=== PATIENT | male | born 1980 | race American Indian/Alaskan Native ===

== ENCOUNTER 2019-09-30 04:12 | Emergency (ER) | payer OTHER ==
--- NOTE | 2019-09-30 05:17 | XRay Report ---
CHEST 2 VIEWS, 09/30/2019 5:04 AM INDICATION: Cough. Fever. COMPARISON: None FINDINGS: Support devices: None Heart: The heart is normal in size. Lungs/pleura: The lungs are clear of focal airspace disease or significant pleural effusion Additional findings: None IMPRESSION: 1. No evidence of acute cardiopulmonary process. Signer Name: Olivia Aranda MD Signed: 09/30/2019 5:12 AM Workstation Name: [id number]
[2019-09-30] MEDS ORDERED: IBUPROFEN 800 MG TAB ONE (06:07)
[2019-09-30] MEDS ORDERED: IBUPROFEN 800 MG TAB PO ONE (06:20)
[2019-09-30] MEDS ORDERED: SODIUM CHLORIDE 0.9% 1000 ML 1,000 ML IV ONE (06:33)
[2019-09-30] MEDS ORDERED: ONDANSETRON 4 MG/2 ML INJ IV ONE (06:33)
[2019-09-30 07:28] LABS: Mean Corpuscular HGB Conc 34 % (32-34); Mean Corpuscular Volume 79 fl (84-94); Platelet Count 181 K/mm3 (140-440); Red Blood Count 4.79 M/mm3 (3.65-5.03); Red Cell Distribution Width 13.6 % (13.2-15.2)
--- NOTE | 2019-09-30 07:35 | Emergency Department Report ---
Minor Respiratory - HPI Chief Complaint: Upper Respiratory Infection Stated Complaint: FLU LIKE SYMPTOMS Time Seen by Provider: 09/30/19 07:12 Duration: 1 week Pain Location: Nose Severity: moderate Minor Respiratory: Yes Rhinorrhea, Yes Able to Tolerate Fluids, Yes Cough, Yes Sick Contacts, Yes Fever, No Sore Throat, No Ear Pain, No Hemoptysis, No Chest Pain, No Shortness of Breath Other History: This is a 39-year-old -[place] male who presents to the emergency room with upper respiratory symptoms for one week. Patient reports cough, chills, fever, myalgia, and vomiting. Patient states he works outside and last week it was raining and S1 symptoms started. He reports worsening symptoms over the past 2 days. He is taken DayQuil, NyQuil, and TheraFlu with minimal improvement of symptoms. He denies sore throat, diarrhea, chest pain, and weakness. ED Review of Systems ROS: Stated complaint: FLU LIKE SYMPTOMS Other details as noted in HPI Constitutional: chills, fever ENT: congestion. denies: ear pain, throat pain, epistaxis Respiratory: cough. denies: shortness of breath, wheezing Cardiovascular: denies: chest pain, palpitations Gastrointestinal: nausea, vomiting. denies: abdominal pain, diarrhea Musculoskeletal: myalgia. denies: back pain, joint swelling, arthralgia Skin: denies: rash, lesions Neurological: denies: headache, weakness, paresthesias Psychiatric: denies: anxiety, depression ED Past Medical Hx - Past Medical History Previous Medical History?: No - Surgical History Past Surgical History?: No - Social History Smoking Status: Light Tobacco Smoker - Medications Home Medications: Home Medications Medication Instructions Recorded Confirmed Last Taken Type Benzonatate [Tessalon Perles] 100 mg PO Q8HR PRN #30 capsule 09/30/19 Unknown R x Cetirizine HCl [Zyrtec 10mg tab] 10 mg PO DAILY #30 tablet 09/30/19 Unknown Rx Fluticasone [Flonase] 1 spray NS QDAY #1 bottle 09/30/19 Unknown Rx Ondansetron [Zofran Odt] 4 mg PO Q8HR PRN #15 tab.rapdis 09/30/19 Unknown Rx Minor Respiratory Exam - Exam General: Vital signs noted. No distress. Alert and acting appropriately. HEENT: Yes Pharyngeal Erythema (erythematous posterior pharynx, uvula midline), Yes Moist Mucous Membranes, Yes Rhinorrhea (turbinates congested with mucoid discharge), No Pharyngeal Exudates, No Conjuctival Injection, No Frontal Tenderness, No Maxillary Tenderness Ear: Neither TM Bulge, Neither TM Erythema, Neither EAC Pain, Neither EAC D ischarge Neck: Yes Supple, No Adenopathy Lungs: Yes Good Air Exchange, No Wheezes, No Ronchi, No Stridor, No Cough, No Labored Respirations, No Retractions, No Use of Accessory Muscles, No Other Abnormal Lung Sounds Heart: Yes Regular, No Murmur Abdomen: Yes Normal Bowel Sounds, No Tenderness, No Peritoneal Signs Skin: No Rash, No Edema Neurologic: Alert and oriented, no deficits. Musculoskeletal: Unremarkable. ED Course Vital Signs 09/30/19 09/30/19 09/30/19 04:17 04:43 06:22 Temperature 99.8 F H 99.8 F H Pulse Rate 117 H 120 H Respiratory 18 18 20 Rate Blood Pressure 139/75 139/75 O2 Sat by Pulse 94 95 Oximetry Vital Signs 09/30/19 09/30/19 09/30/19 04:17 04:43 06:22 Temperature 99.8 F H 99.8 F H Pulse Rate 117 H 120 H Respiratory 18 18 20 Rate Blood Pressure 139/75 139/75 Blood Pressure [Left] O2 Sat by Pulse 94 95 Oximetry 09/30/19 08:13 Temperature Pulse Rate 94 H Respiratory 18 Rate Blood Pressure Blood Pressure 131/75 [Left] O2 Sat by Pulse 98 Oximetry ED Medical Decision Making - Lab Data Result diagrams: 09/30/19 06:55 09/30/19 06:55 Lab Results 09/30/19 Range/Units 04:40 Influenza A (Rapid) Negative (Negative) Influenza B (Rapid) Negative (Negative) Lab Results 09/30/19 09/30/19 09/30/19 Range/Units 04:40 06:55 06:55 WBC 5.4 (4.5-11.0) K/mm3 RBC 4.79 (3.65-5.03) M/mm3 Hgb 13.0 (11.8-15.2) gm/dl Hct 38.0 (35.5-45.6) % MCV 79 L (84-94) fl MCH 27 L (28-32) pg MCHC 34 (32-34) % RDW 13.6 (13.2-15.2) % Plt Count 181 (140-440) K/mm3 Sodium 135 L (137-145) mmol/L Potassium 3.7 (3.6-5.0) mmol/L Chloride 101.0 (98-107) mmol/L Carbon Dioxide 18 L (22-30) mmol/L Anion Gap 20 mmol/L BUN 8 L (9-20) mg/dL Creatinine 1.1 (0.8-1.5) mg/dL Estimated GFR > 60 ml/min BUN/Creatinine Ratio 7 % Glucose 129 H (75-100) mg/dL Calcium 8.8 (8.4-10.2) mg/dL Total Bilirubin 0.70 (0.1-1.2) mg/dL AST 29 (5-40) units/L ALT 30 (7-56) units/L Alkaline Phosphatase 79 (35-129) units/L Total Protein 7.9 (6.3-8.2) g/dL Albumin 4.3 (3.9-5) g/dL Albumin/Globulin Ratio 1.2 % Lipase 25 (13-60) units/L Influenza A (Rapid) Negative (Negative) Influenza B (Rapid) Negative (Negative) - Radiology Data Radiology results: report reviewed CHEST 2 VIEWS, 09/30/2019 5:04 AM INDICATION: Cough. Fever. COMPARISON: None FINDINGS: Support devices: None Heart: The heart is normal in size. Lungs/pleura: The lungs are clear of focal airspace disease or significant pleural effusion Additional findings: None IMPRESSION: 1. No evidence of acute cardiopulmonary process. - Medical Decision Making Tachycardic on arrival. no acute distress. Chest x-ray and labs obtained. Chest x-ray no acute cardiopulmonary findings. Negative influenza. Given Zofran, analgesics, and 1 L normal saline bolus while in the ER. Patient re ports feeling better. Vitals improved. Reviewed results and plan with patient. Nasopharyngitis. Start Zofran, benzonatate, cetirizine, and Flonase. Discharged home stable. Encouraged to do supportive care for URI. Follow up with Primary Care Provider in 2-3 days. Critical care attestation.: If time is entered above; I have spent that time in minutes in the direct care of this critically ill patient, excluding procedure time. ED Disposition Clinical Impression: Acute nasopharyngitis, Cough in adult, Nausea and vomiting in adult patient Disposition: DC-01 TO HOME OR SELFCARE Is pt being admited?: No Condition: Stable Instructions: Upper Respiratory Infection (ED), Cold Symptoms (ED) Additional Instructions: Increase fluid intake and rest. Wash hands frequently. Continue taking Tylenol or ibuprofen to control fever. F/U with Primary Care Provider. Return to ER if fever, shortness of breath, or difficulty breathing after 48 hours of supportive care. Prescriptions: Fluticasone [Flonase] 1 spray NS QDAY #1 bottle Benzonatate [Tessalon Perles] 100 mg PO Q8HR PRN #30 capsule PRN Reason: Cough Ondansetron [Zofran Odt] 4 mg PO Q8HR PRN #15 tab.rapdis PRN Reason: Nausea And Vomiting Cetirizine HCl [Zyrtec 10mg tab] 10 mg PO DAILY #30 tablet Referrals: [facility] [place] [Outside] - 3-5 Days [facility] [Outside] - 3-5 Days [facility] [Outside] - 3-5 Days Forms: Work/School Release Form(ED) Time of Disposition: 07:36
[2019-09-30 07:53] LABS: Alanine Aminotransferase 30 units/L (7-56); Albumin 4.3 g/dL (3.9-5); BUN/Creatinine Ratio 7; Blood Urea Nitrogen 8 mg/dL (9-20); Calcium 8.8 mg/dL (8.4-10.2); Hemolysis Index 6
[2019-09-30 08:16] VITALS: BP 131/75
== END 2019-09-30 08:47 | disposition home or self-care (01) ==
LOC: ED 04:12
DX: J00 Acute nasopharyngitis [common cold] (principal); R11.2 Nausea with vomiting, unspecified; F17.200 Nicotine dependence, unspecified, uncomplicated
CPT/HCPCS: 36415; 71046; 80053; 83690; 85027; 87400; 96361; 96374; 99284; J2405; J7030